=== PATIENT | male | born 1950 | race Caucasian/White ===

== ENCOUNTER 2016-05-28 17:52 | Emergency (ER) | payer OTHER ==
--- NOTE | 2016-05-28 18:55 | DIAGNOSTIC IMAGING REPORT ---
PROCEDURE: CT HEAD WITHOUT CONTRAST INDICATION: TRAUMA/INJURY TECHNIQUE: Noncontrast axial images with sagittal and coronal reformations. COMPARISON: Compared to a head CT on 07/18/2011. FINDINGS: There is a deep laceration over the right posterior frontal region which extends to the frontal bone. No evidence of skull fracture. Mild old small vessel changes of the white matter. Brain and ventricles are otherwise normal. No evidence of an acute process or hemorrhage. There are calcifications of the vertebral vessels. There is marked chronic mucosal thickening of the right maxillary sinus with findings suggesting obstruction of the ostiomeatal unit. There is mild to moderate mucosal thickening in the anterior ethmoid air cells. Sinuses and mastoids are otherwise normal. IMPRESSION: 1. Deep laceration over the frontal bone. 2. Mild old small vessel changes of the white matter. Otherwise normal brain and ventricles. No evidence of intracranial injury. 3. Marked chronic mucosal thickening of the right maxillary sinus with findings suggesting obstruction of the ostiomeatal unit (e.g., polyp, mucosal thickening). 4. Mild to moderate mucosal thickening in the anterior ethmoid air cells (appears chronic). 5. Chronic calcifications of the vertebral arteries. 6. Findings discussed with Dr. Nas Coello at [address] scans at this facility use dose modulation, iterative reconstruction, and/or weight-based dosing when appropriate to reduce radiation dose to as low as reasonably achievable.
--- NOTE | 2016-05-28 21:11 | ED ORDER SUMMARY ---
..... Patient: RAJ LEARY OrderSheet [facility] VisitID: [id number] [place] [address] 66y, M Registration Date/Time: 05/28/2016 ORDER SHEET Weight: 78.4 kg (stated) Allergies: No Known Drug Allergy GENERAL ORDERS: CT Head wo Cont Urgent (18:11 05/28/2016 Geovanna Louise) (Ack 18:13 Yevgeniy) (19:26 JQuivey R.N.) Irrigate Wounds (18:12 05/28/2016 Geovanna Louise) (Ack 18:13 Yevgeniy) (18:36 SReitz R.N.) Suture Set-up: (18:12 05/28/2016 Geovanna Louise) (Ack 18:13 Yevgeniy) (19:26 JQuivey R.N.) MEDICATION ORDERS: Lidocaine-Epinephrine Injection 1% (place at bedside, with syringes & needles) (18:12 05/28/2016 Geovanna Louise) (Ack 18:14 SReitz R.N.) (19:26 JQuivey R.N.) IV FLUIDS: ORDER SHEET NOTES: [Electronically signed by Carol Go R.N. (02:06 05/29/2016)] [Electronically signed by Nas Coello Dr. (10:11 05/29/2016)] [Electronically locked/signed by Carol Go R.N. (02:05/29/2016)]
--- NOTE | 2016-05-28 21:11 | ED CLINICAL REPORT ---
Clinical Report - Physicians/Mid Levels [facility] [address] [place] [address] 05/28/2016 17:53 Patient: RAJ LEARY Time Seen: 1808. Arrived- By private vehicle. Historian- patient. HISTORY OF PRESENT ILLNESS Chief Complaint: INJURY TO HEAD. Location of injuries- face. The injury occurred today. Occurred at home. The patient complains of mild pain. The patient sustained a blow to the head. No neck pain, loss of consciousness or seizure. Not dazed. REVIEW OF SYSTEMS All systems otherwise negative, except as recorded above. PAST HISTORY See nurses notes. Tetanus immunization status is up-to-date. Medications: Vicodin Oral 7.5 mg, PRN. Methotrexate Oral (Tablet 2.5 mg) 3 tabs, once a week. Multiple Vitamins-Minerals Oral 1 tab, daily. Cholecalciferol Oral (Tablet 5000 unit) 1 tablet, daily. Ferrous Sulfate Oral (Tablet 325 (65 Fe) mg) 1 tablet, daily. Folic Acid Oral (Tablet 1 mg) 1 tablet, daily. Humira Pen Subcutaneous (Kit 40 mg/0.8mL), every other week. Lisinopril Oral (Tablet 5 mg) 1 tablet, daily. Meloxicam Oral (Tablet 15 mg) 1 tablet, daily. Carvedilol Phosphate ER Oral. Allergies: No Known Drug Allergy. SOCIAL HISTORY Former smoker. Alcohol use. No drug use. No recent travel. Is a local resident. ADDITIONAL NOTES The nursing notes have been reviewed. PHYSICAL EXAM Vital Signs: 05/28/2016 17:58 BP: 116/74. HR: 52. RR: 18. O2 saturation: 96%. Temp: 97.3 F. Pain level now: 0/10. Blood pressure normal. Oxygen saturation normal. Appearance: Alert. No acute distress. Head: No swelling of head. No Ventura's sign or raccoon eyes. (7 cm elliptical laceration to the right forehead. Full-thickness with subcutaneous tissue and fascia involvement. No foreign bodies. Bleeding is controlled. No gross contamination. No step-offs or crepitus. No other signs of injury noted.). Eyes: Pupils equal, round and reactive to light. Pupillary exam: Right pupil round and reactive to light directly and consensually and with accommodation. Left pupil: round and reactive to light directly and consensually and with accommodation. EOM intact. ENT: No dental injury. No hemotympanum. Pharynx normal. No malocclusion. Neck: No decreased ROM or muscle spasm in the neck. No pain with movement of head/neck. Painless ROM. Neck non-tender. No vertebral tenderness. CVS: Heart sounds normal. Pulses normal. Respiratory: Breath sounds normal. Chest nontender. Abdomen: Soft and nontender. No organomegaly. Back: No tenderness. ROM normal. Skin: Skin intact. Skin warm and dry. Normal skin color. Normal skin turgor. Extremities: Normal inspection. Pelvis stable. Extremities atraumatic. No lower extremity edema. Neuro: [place] Coma Scale: 15- eyes open spontaneously (4); best verbal response- oriented x 3 (5); best motor response- obeys commands (6). Oriented X 3. Mood/affect normal. Speech normal. No motor deficit. No sensory deficit. LABS, X-RAYS, AND EKG CT Head: No bony abnormalities, no hemorrhage, no intracranial mass, no midline shift and no hydrocephalus. (no acute intracranial abnormalities.). Head CT performed without contrast. The study was independently viewed by me and interpreted by the radiologist. The study was discussed with the radiologist (Via phone). PROGRESS AND PROCEDURES Laceration Repair: Location: forehead. Length: 7.0cm. Wound depth/shape- subcutaneous and involving fascia and muscle. Distal neuro/vascular/tendon status normal. Anesthesia provided using 1% lidocaine with epi. Prepped with Hibiclens. Wound explored, cleansed, irrigated and examined to the base in bloodless field extensively with normal saline. Closure of skin: interrupted 5-0 nylon (14 sutures). Post-procedure: he is stable and there are no complications. Bleeding is controlled. Dressing applied. Tetanus immunization up-to-date. Estimated blood loss: 8 mL. ( patient tolerated well). Course of Care: the patient is a pleasant 66-year-old male presenting for evaluation of fall in the bathroom. 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 The patient reports a loss consciousness or injury to the neck, back, chest, abdomen, pelvis, or other extremities. Because of the patient's age of 66, he is a candidate for CT scan of the head for evaluation of any acute intracranial bleeds. Patient is agreeable to treatment plan. Also discussed the patient wound closure and need for irrigation and cleaning of the wound to the forehead. The patient to be deep. Bleeding is been controlled here in the emergency department. Patient's CT scan of his head does not show any acute intracranial abnormalities. The rest of the pat unremarkable. Patient's was agreeable to the closure of the wound. Please see procedure note for further details. The wound was closed. Bleeding is controlled. Infection precaution risks were explained to patient as well as wound care. Follow-up as well as home care, return precautions were also discussed. All questions have been answered. The patient expressed understanding of these instructions and was agreeable to them. While suturing the patient he was talking to me about [employer] for [employer]. Prior to patient's departure from the emergency department he is noted to be resting in bed and in no acute distress. Patient continues to be appropriate. Do not feel patient needs be admitted to the hospital require further emergency department workup/evaluation. Disposition: Discharged. Condition: good. CLINICAL IMPRESSION 05/28/2016 20:51 BP: 109/65. HR: 92. RR: 15. O2 saturation: 100%. Blood pressure normal. Oxygen saturation normal. Single deep laceration to the forehead.No foreign body present. Minor closed head injury. No loss of consciousness. INSTRUCTIONS Warnings: GENERAL WARNINGS: Return or contact your physician immediately if your condition worsens or changes unexpectedly, if not improving as expected, or if other problems arise. Specifically return if pain, vomiting, bleeding, breathing difficulty or fever. Your Current Medications: CONTINUE TAKING THE FOLLOWING MEDICATIONS: Carvedilol Phosphate ER Oral. Cholecalciferol Oral : Tablet 5000 unit, 1 tablet daily. Ferrous Sulfate Oral : Tablet 325 (65 Fe) mg, 1 tablet daily. Folic Acid Oral : Tablet 1 mg, 1 tablet daily. Humira Pen Subcutaneous : Kit 40 mg/0.8mL, every other week. Lisinopril Oral : Tablet 5 mg, 1 tablet daily. Meloxicam Oral : Tablet 15 mg, 1 tablet daily. Methotrexate Oral : Tablet 2.5 mg, 3 tabs once a week. Multiple Vitamins-Minerals Oral : 1 tab daily. Vicodin Oral : 7.5 mg PRN. Prescription Medications: [place] 5 mg / 325 mg tablets: take 1 orally every 6 hours as needed for pain. Dispense fifteen (15). No refill. Substitution is permissible. Follow-up: Return to the emergency department as needed. Follow up with your doctor in three days. Reason for referral: recheck today's concerns. Summary of care provided to patient via paper. Screening today revealed the patient's blood pressure to be in the normal range. The patient should follow up with a primary care provider for blood pressure management. Understanding of the discharge instructions verbalized by patient. (Electronically signed by Nas Coello Dr. 05/29/2016 10:11)
--- NOTE | 2016-05-28 21:11 | ED ORDER SUMMARY ---
..... Patient: RAJ LEARY OrderSheet [facility] VisitID: [id number] [place] [address] 66y, M Registration Date/Time: 05/28/2016 ORDER SHEET Weight: 78.4 kg (stated) Allergies: No Known Drug Allergy GENERAL ORDERS: CT Head wo Cont Urgent (18:11 05/28/2016 Geovanna Louise) (Ack 18:13 Yevgeniy) (19:26 JQuivey R.N.) Irrigate Wounds (18:12 05/28/2016 Geovanna Louise) (Ack 18:13 Yevgeniy) (18:36 SReitz R.N.) Suture Set-up: (18:12 05/28/2016 Geovanna Louise) (Ack 18:13 Yevgeniy) (19:26 JQuivey R.N.) MEDICATION ORDERS: Lidocaine-Epinephrine Injection 1% (place at bedside, with syringes & needles) (18:12 05/28/2016 Geovanna Louise) (Ack 18:14 SReitz R.N.) (19:26 JQuivey R.N.) IV FLUIDS: ORDER SHEET NOTES: [Electronically signed by Carol Go R.N. (02:06 05/29/2016)] [Electronically signed by Nas Coello Dr. (10:11 05/29/2016)] [Electronically locked/signed by Carol Go R.N. (02:05/29/2016)]
--- NOTE | 2016-05-28 21:11 | ED NURSING NOTES ---
Clinical Report - Nurses [place] [address] [place] [address] 05/28/2016 17:53 Patient: RAJ LEARY TRIAGE Triage time 17:59. Acuity: LEVEL 3. Chief Complaint: FALL while standing, onto a tile surface and landed on their head; became dizzy. Alert. No acute distress. HARJINDER COMA SCORE: [place] Coma Scale: 15- eyes open spontaneously (4); best verbal response- oriented x 4 (5); best motor response- obeys commands (6). --18:11 Marilyn Seals R.N. 17:58 05/28/16. BP: 116/74. HR: 52. RR: 18. O2 saturation: 96%. Temp: 97.3 F (oral). Pain level now: 0/10. --18:11 Marilyn Seals R.N. Weight: 78.4 kg stated. Height/Length: 73 inches Per Patient. BMI: 22.8. --18:08 Marilyn Seals R.N. Medications Carvedilol Phosphate ER Oral. --18:03 Marilyn Seals R.N. Cholecalciferol Oral (Tablet 5000 unit) 1 tablet, daily. Ferrous Sulfate Oral (Tablet 325 (65 Fe) mg) 1 tablet, daily. Folic Acid Oral (Tablet 1 mg) 1 tablet, daily. Humira Pen Subcutaneous (Kit 40 mg/0.8mL), every other week. Lisinopril Oral (Tablet 5 mg) 1 tablet, daily. Meloxicam Oral (Tablet 15 mg) 1 tablet, daily. --18:03 Marilyn Seals R.N. Methotrexate Oral (Tablet 2.5 mg) 3 tabs, once a week. Multiple Vitamins-Minerals Oral 1 tab, daily. --18:03 Marilyn Seals R.N. Vicodin Oral 7.5 mg, PRN. --18:04 Marilyn Seals R.N. Medication/allergy information source: the patient. --18:11 Marilyn Seals R.N. Allergies No Known Drug Allergy. --18:03 Marilyn Seals R.N. History Arrived by EMS. Historian: EMS and patient. Accompanied by friend. Primary physician ([facility]). This occurred just prior to arrival. Occurred at home. ( pt was able to crawl to the door of the house and meet EMS, denies LOC). PAST MEDICAL HX: Last tetanus: (about 5 years). SOCIAL HX: Former smoker. Alcohol use; consumes liquor weekly. (had 3 vodka tonic's today). No drug use. LEARNING NEEDS ASSESSMENT: The learning needs assessment revealed no barriers. FALL RISK ASSESSMENT: Fall risk assessment completed. Risk factors identified include patient history of fall and impairment of mobility. FUNCTIONAL ASSESSMENT: Functional assessment performed: requires assistance with the activities of daily living; uses cane- this mobility impairment is an ongoing problem. --18:11 Marilyn Seals R.N. PROBLEMS: Folliculitis. Contusion. Fall. Back Pain. GI Bleeding. Chest Pain. Abnormal Liver Function Test. Substance Abuse. Anemia. Syncope. COPD - Chronic Obstructive Pulmonary Disease. Congestive Heart Failure. Pneumothorax. Concussion. Hypertension. Silas's Disease. Rheumatoid Arthritis. Immunizations. --18:05 Marilyn Seals R.N. ADDITIONAL SURGERIES: Appendectomy. Back Surgery. Knee Prosthesis. Knee Surgery. Metal heydi in L femur. Right foot fusion . Rotator Cuff Surgery. Screw in L hip. Splenectomy. Tonsillectomy & Adenoidectomy. --18:05 Marilyn Seals R.N. Assessment GENERAL / NEURO / PSYCH: Alert. Oriented X 4. Appears in no acute distress. Patient appears calm and cooperative. RESPIRATORY: Respirations not labored. SKIN: Skin is warm and dry. --18:11 Marilyn Seals R.N. Interventions ID band on patient. To treatment room. --18:11 Marilyn Seals R.N. PHYSICAL ASSESSMENT To room via stretcher. GENERAL / NEURO / PSYCH: Alert. Oriented X 4. Appears in no acute distress. RESPIRATORY: Respirations not labored. CVS: Pulses within normal limits. Capillary refill less than 2 seconds. EXTREMITIES: ( first contact with pt.). SKIN: Skin is warm and dry. Skin breakdown noted. (lacerations on forehead: bleeding controlled.). --18:16 Pam Malloy R.N. NURSING PROGRESS NOTES Care transferred and report given (from HANNAH Sanders). --18:15 Pam Malloy R.N. Two patient identifiers checked. Call light placed in reach. Side rails up x 2. Bed placed in lowest position. Brakes of bed on. Patient ready for evaluation- chart flagged. --18:16 Pam Malloy R.N. ( Laceration cart in room and set up.). --18:16 Pam Malloy R.N. Wound cleansed with sterile saline. --18:22 Rasheed Pendleton, Tech1 19:20. Care transferred and report received. --19:21 Javed Fleming R.N. 19:26 05/28/2016 Lidocaine-Epinephrine (Lidocaine-Epinephrine) Injection 1 % given. (at bedside). --19:26 Javed Fleming R.N. 19:27. Cardiac rhythm: sinus rhythm. The patient is sleeping. RESPIRATORY: No respiratory distress. --19:27 Javed Fleming R.N. 19:27 05/28/16. BP: 124/86. HR: 71. RR: 16. O2 saturation: 100%. --19:27 Javed Fleming R.N. 20:13. WOUND REPAIR: Wound repair performed by ED physician. Assisted by one tech. The wound is located on the scalp. The wound is linear. Preparation: suture tray set-up with 1% lidocaine with epi. Wound cleansed per physician and irrigated per physician. Procedure: wound repaired with sutures. Post-procedure: he was stable, no complications and bleeding controlled. Total time of assist / procedure: 15 minutes. ( 1 suture pack used in repair). --20:19 Javed Fleming R.N. 20:51. The patient is calm and resting quietly. RESPIRATORY: No respiratory distress. --20:53 Javed Fleming R.N. 20:51 05/28/16. BP: 109/65. HR: 92. RR: 15. O2 saturation: 100% on room air. --20:53 Javed Fleming R.N. DISPOSITION / DISCHARGE Condition at departure: improved and stable. No learning barriers present. Discharge instructions provided and reviewed with the patient. Reviewed medication(s) side effects, precautions, dosing and course information. Prescription(s) given to the patient. Patient verbalized understanding. Written instructions provided in [place]. The patient was discharged home and accompanied by purchasing analyst. He left the Emergency Department ambulatory and via private vehicle. Mental Health Unit Lead Psychologist driving. ( pt given paper pants and hospital socks to wear home.). --21:21 Carol Go R.N. 21:20 05/28/16. BP: 112/74. HR: 96. RR: 15. O2 saturation: 100% on room air. Temp: deferred. Maldonado-Ji pain scale: 04/05. --21:21 Carol Go R.N. Locked/Released at 05/29/2016 2:06 by Carol Go R.N.
--- NOTE | 2016-05-29 10:11 | ED DISCHARGE INSTRUCTIONS ---
Patient: RAJ LEARY General Instructions [facility] VisitID: [id number] [place] [address] 66y, M Registration Date/Time: 05/28/2016 05/28/2016 20:51 BP: 109/65. HR: 92. RR: 15. O2 saturation: 100%. Blood pressure normal. Oxygen saturation normal. Single deep laceration to the forehead.No foreign body present. Minor closed head injury. No loss of consciousness. INSTRUCTIONS Warnings: GENERAL WARNINGS: Return or contact your physician immediately if your condition worsens or changes unexpectedly, if not improving as expected, or if other problems arise. Specifically return if pain, vomiting, bleeding, breathing difficulty or fever. Your Current Medications: CONTINUE TAKING THE FOLLOWING MEDICATIONS: Carvedilol Phosphate ER Oral. Cholecalciferol Oral : Tablet 5000 unit, 1 tablet daily. Ferrous Sulfate Oral : Tablet 325 (65 Fe) mg, 1 tablet daily. Folic Acid Oral : Tablet 1 mg, 1 tablet daily. Humira Pen Subcutaneous : Kit 40 mg/0.8mL, every other week. Lisinopril Oral : Tablet 5 mg, 1 tablet daily. Meloxicam Oral : Tablet 15 mg, 1 tablet daily. Methotrexate Oral : Tablet 2.5 mg, 3 tabs once a week. Multiple Vitamins-Minerals Oral : 1 tab daily. Vicodin Oral : 7.5 mg PRN. Prescription Medications: [place] 5 mg / 325 mg tablets: take 1 orally every 6 hours as needed for pain. Dispense fifteen (15). No refill. Substitution is permissible. Follow-up: Return to the emergency department as needed. Follow up with your doctor in three days. Reason for referral: recheck today's concerns. Summary of care provided to patient via paper. Screening today revealed the patient's blood pressure to be in the normal range. The patient should follow up with a primary care provider for blood pressure management. Understanding of the discharge instructions verbalized by patient. ADDITIONAL INFORMATION Head Injury, No Wake-Up (Adult) You have had a head injury. It does not appear serious at this time. Symptoms of a more serious problem (concussion, bruising, or bleeding in the brain) may appear later. Therefore, watch for the WARNING SIGNS listed below. Home Care: Your healthcare provider will tell you whether its okay to drive. If so, you can drive yourself home. For the next day or so, be careful when driving or using heavy machinery until you are sure you have no delayed symptoms. During the next 24 hours someone must stay with you to check for the signs below. It is not necessary to stay awake or be awakened during the night. If you have swelling of the face or scalp, apply an ice pack (ice cubes in a plastic bag, wrapped in a towel) for 20 minutes. Do this every 1-2 hours until the swelling starts to go down. Do not use aspirin or ibuprofen (Motrin, Advil) after a head injury.You may use acetaminophen (Tylenol)to control pain, unless another pain medicine was prescribed. [NOTE: If you have chronic liver or kidney disease or ever had a stomach ulcer or GI bleeding, talk with your doctor before using these medicines.] For the next 24 hours: Do not take alcohol, sedatives or medicines that make you sleepy. Avoid strenuous activities. No lifting or straining. If you have had any symptoms of a concussion today (nausea, vomiting, dizziness, confusion, headache, memory loss or if you were knocked out), do not return to sports or any activity that could result in another head injury until all symptoms are gone and you have been cleared by your doctor. A second head injury before fully recovering from the first one can lead to serious brain injury. Follow Up with your doctor if symptoms are not improving after 24 hours, or as directed. [NOTE: A radiologist will review any X-rays or CT scans that were taken. We will notify you of any new findings that may affect your care.] Get Prompt Medical Attention if any of the followingWARNING SIGNS occur: Repeated vomiting Severe or worsening headache or dizziness Unusual drowsiness, or unable to awaken as usual Confusion or change in behavior or speech, memory loss, blurred vision Convulsion (seizure) Increasing scalp or face swelling Redness, warmth or pus from the swollen area Fluid drainage or bleeding from the nose or ears Concussion (No Wake-Up) A concussion happens when you hit your head with enough force to shake up the brain. This may cause you to lose consciousness be "knocked out" - but not always. Depending on how hard you hit your head, it will take from a few hours up to a few days to get better. Sometimes symptoms may last a few months or longer. This is called post-concussion syndrome. At first, you may have a headache, nausea, vomiting, or dizziness. You may also have problems concentrating or remembering things. This is normal. Symptoms should get better as the hours and days go by. Symptoms that get worse could be a sign of a more serious injury. This might be a bruise or bleeding in the brain. Thats why its important to watch for the warning signs listed below. Home care Follow these tips to help care for yourself at home: During the next day (24 hours) someone must stay with you to check for the signs below. If your face or scalp swells, apply an ice pack for 20 minutes every 1 to 2 hours. Do this until the swelling starts to go down. You can make an ice pack by putting ice cubes in a plastic bag and wrapping the bag in a towel. for 20 minutes every 1-2 hours until the swelling starts to go down. You may use acetaminophen to control pain, unless another pain medicine was prescribed. If you have chronic liver or kidney disease, talk with your doctor before using these medicines. Also talk with your doctor if you ever had a stomach ulcer or GI bleeding. For the next 24 hours: Dont drink alcohol or take sedatives or medicines that make you sleepy. Dont drive or operate machinery. Avoid doing anything strenuous. Dont lift or strain. Dont return to sports or any activity that could cause you to hit your head until all symptoms are gone and you have been cleared by your doctor. A second head injury before fully recovering from the first one can lead to serious brain injury. Follow-up care Follow up with your doctor in 1 week, or as directed. Note: A radiologist will review any X-rays or CT scans that were taken. You will be told of any new findings that may affect your care. When to seek medical care Get prompt medical attention if any of these occur: Repeated vomiting Headache or dizziness that is severe or gets worse Unusual drowsiness, or unable to wake up as usual Confusion or change in behavior or speech, or memory loss Blurred vision Convulsion (seizure) Swelling on the scalp or face that gets worse Redness, warmth, or pus from the swollen area Fluid draining from or bleeding from the nose or ears Laceration, Face (Suture Or Tape) Alaceration is a cut through the skin. This will require stitches if it is deep. Minor cuts may be treated with surgical tape. Home care The following guidelines will help you care for your laceration at home: If a bandage was applied and it becomes wet or dirty, replace it. Otherwise, leave it in place for the first 24 hours, then change it once a day or as directed. If sutures were used, clean the wound daily: After removing the bandage, wash the area with soap and water. Use a wet cotton swab to loosen and remove any blood or crust that forms. After cleaning, keep the wound clean and dry. Talk with your doctor before applying any antibiotic ointment to the wound. Reapply a fresh bandage. You may remove the bandage to shower as usual after the first 24 hours, but do not soak the area in water (no swimming) until the sutures are removed. If surgical tape was used, keep the area clean and dry. If it becomes wet, blot it dry with a towel. The doctor may prescribe an antibiotic cream or ointment to prevent infection. Do not stop taking this medication until you have have finished the prescribed course or the doctor tells you to stop. The doctor may also prescribe medications for pain. Follow the doctor's instructions for taking these medications.If you have chronic liver or kidney disease or ever had a stomach ulcer or GI bleeding, talk with your doctor before using these medicines. Follow-up care Follow up with your health care provider. Most facial cuts heal in five days with no problem. However, even with proper treatment, a wound infection sometimes occurs. Therefore, check the wound daily for the warning signs listed below. Stitches should not be left in the face for more thanfivedays; otherwise, permanent stitch ovalle may form. If surgical tape closures were used, you may remove them yourself afterfivedays, if they have not fallen off by then. When to seek medical care Get prompt medical attention if any of these occur: Increasing pain in the wound Redness, swelling, or pus coming from the wound If sutures come apart or fall out before 5 days If the surgical tape closures fall off before 5 days, or the wound edges reopen Fever of 100.4F (38C) or higher, or as directed by your health care provider Bleeding not controlled by direct pressure Hydrocodone Bitartrate, Acetaminophen Oral tablet What is this medicine? ACETAMINOPHEN; HYDROCODONE (a set a IRASEMA juan fen; grayson droe KOE done) is a pain reliever. It is used to treat mild to moderate pain. How should I use this medicine? Take this medicine by mouth. Swallow it with a full glass of water. Follow the directions on the prescription label. If the medicine upsets your stomach, take the medicine with food or milk. Do not take more than you are told to take. Talk to your horse show manager regarding the use of this medicine in children. This medicine is not approved for use in children. What side effects may I notice from receiving this medicine? Side effects that you should report to your doctor or health before and after school daycare worker as soon as possible: allergic reactions like skin rash, itching or hives, swelling of the face, lips, or tongue breathing problems confusion feeling faint or lightheaded, falls stomach pain yellowing of the eyes or skin Side effects that usually do not require medical attention (report to your doctor or health before and after school daycare worker if they continue or are bothersome): nausea, vomiting stomach upset What may interact with this medicine? alcohol antihistamines isoniazid medicines for depression, anxiety, or psychotic disturbances medicines for sleep muscle relaxants naltrexone narcotic medicines (opiates) for pain phenobarbital ritonavir tramadol What if I miss a dose? If you miss a dose, take it as soon as you can. If it is almost time for your next dose, take only that dose. Do not take double or extra doses. Where should I keep my medicine? Keep out of the reach of children. This medicine can be abused. Keep your medicine in a safe place to protect it from theft. Do not share this medicine with anyone. Selling or giving away this medicine is dangerous and against the law. Store at room temperature between 15 and 30 degrees C (59 and 86 degrees F). Protect from light. Keep container tightly closed. Throw away any unused medicine after the expiration date. Discard unused medicine and used packaging carefully. Pets and children can be harmed if they find used or lost packages. What should I tell my health care provider before I take this medicine? They need to know if you have any of these conditions: brain tumor Crohn's disease, inflammatory bowel disease, or ulcerative colitis drink more than 3 alcohol-containing drinks per day drug abuse or addiction head injury heart or circulation problems kidney disease or problems going to the bathroom liver disease lung disease, asthma, or breathing problems an unusual or allergic reaction to acetaminophen, hydrocodone, other opioid analgesics, other medicines, foods, dyes, or preservatives or trying to get breast-feeding What should I watch for while using this medicine? Tell your doctor or health before and after school daycare worker if your pain does not go away, if it gets worse, or if you have new or a different type of pain. You may develop tolerance to the medicine. Tolerance means that you will need a higher dose of the medicine for pain relief. Tolerance is normal and is expected if you take the medicine for a long time. Do not suddenly stop taking your medicine because you may develop a severe reaction. Your body becomes used to the medicine. This does NOT mean you are addicted. Addiction is a behavior related to getting and using a drug for a non-medical reason. If you have pain, you have a medical reason to take pain medicine. Your doctor will tell you how much medicine to take. If your doctor wants you to stop the medicine, the dose will be slowly lowered over time to avoid any side effects. You may get drowsy or dizzy when you first start taking the medicine or change doses. Do not drive, use machinery, or do anything that may be dangerous until you know how the medicine affects you. Stand or sit up slowly. There are different types of narcotic medicines (opiates) for pain. If you take more than one type at the same time, you may have more side effects. Give your health care provider a list of all medicines you use. Your doctor will tell you how much medicine to take. Do not take more medicine than directed. Call emergency for help if you have problems breathing. The medicine will cause constipation. Try to have a bowel movement at least every 2 to 3 days. If you do not have a bowel movement for 3 days, call your doctor or health before and after school daycare worker. Too much acetaminophen can be very dangerous. Do not take Tylenol (acetaminophen) or medicines that contain acetaminophen with this medicine. Many non-prescription medicines contain acetaminophen. Always read the labels carefully. You have been given the following additional information: HEAD INJURY, No Wake-Up (Adult) Concussion, No Wake-Up Laceration, Face (Suture Or Tape) Hydrocodone Bitartrate, Acetaminophen Oral tablet (Electronically signed by Nas Coello Dr. 05/29/2016 10:11)
--- NOTE | 2016-05-29 10:12 | ED MAR SUMMARY ---
..... Medication Administration Record [address] [place] [address] Patient: RAJ LEARY Visit ID: [id number] 66y, M Weight: 78.4 kg Height/Length: 73 in BMI: 22.8 ALLERGIES: No Known Drug Allergy Given 19:26 05/28/2016 Javed Fleming R.N. Medication Administered: LIDOCAINE-EPINEPHRINE [INJECTION] (LIDOCAINE-EPINEPHRINE), Dose: 1 % Injection. Medication Ordered: Lidocaine-Epinephrine Injection 1% (place at bedside, with syringes & needles).
--- NOTE | 2016-05-29 10:12 | ED MED RECONCILIATION SUMMARY ---
Patient: RAJ LEARY Medication Reconciliation Report [facility] VisitID: [id number] [place] [address] 66y, M Registration Date/Time: 05/28/2016 Weight: 78.4 kg Height/Length: 73 in. BMI: 22.8 ALLERGIES: No Known Drug Allergy The patient's Home Medications are listed below: CONTINUE TAKING THE FOLLOWING MEDICATIONS: Carvedilol Phosphate ER Oral Cholecalciferol Oral (5000 unit) 1 tablet, daily Ferrous Sulfate Oral (325 (65 Fe) mg) 1 tablet, daily Folic Acid Oral (1 mg) 1 tablet, daily Humira Pen Subcutaneous (40 mg/0.8mL), every other week Lisinopril Oral (5 mg) 1 tablet, daily Meloxicam Oral (15 mg) 1 tablet, daily Methotrexate Oral (2.5 mg) 3 tabs, once a week Multiple Vitamins-Minerals Oral 1 tab, daily Vicodin Oral 7.5 mg, PRN The source(s) of the original Home Medication information: patient The following Medications were given to the patient in the Emergency Department: Lidocaine-Epinephrine [Injection] Injection 1 %, administered: 05/28/2016 7:26:00 PM The following Medications were prescribed to the patient: [place] 5 mg / 325 mg tablets: take 1 orally every 6 hours as needed for pain. Dispense fifteen (15). No refill. Substitution is permissible. -- Nas Coello Dr.
--- NOTE | 2016-05-29 10:12 | ED MAR SUMMARY ---
..... Medication Administration Record [address] [place] [address] Patient: RAJ LEARY Visit ID: [id number] 66y, M Weight: 78.4 kg Height/Length: 73 in BMI: 22.8 ALLERGIES: No Known Drug Allergy Given 19:26 05/28/2016 Javed Fleming R.N. Medication Administered: LIDOCAINE-EPINEPHRINE [INJECTION] (LIDOCAINE-EPINEPHRINE), Dose: 1 % Injection. Medication Ordered: Lidocaine-Epinephrine Injection 1% (place at bedside, with syringes & needles).
--- NOTE | 2016-05-29 10:12 | ED MED RECONCILIATION SUMMARY ---
Patient: RAJ LEARY Medication Reconciliation Report [facility] VisitID: [id number] [place] [address] 66y, M Registration Date/Time: 05/28/2016 Weight: 78.4 kg Height/Length: 73 in. BMI: 22.8 ALLERGIES: No Known Drug Allergy The patient's Home Medications are listed below: CONTINUE TAKING THE FOLLOWING MEDICATIONS: Carvedilol Phosphate ER Oral Cholecalciferol Oral (5000 unit) 1 tablet, daily Ferrous Sulfate Oral (325 (65 Fe) mg) 1 tablet, daily Folic Acid Oral (1 mg) 1 tablet, daily Humira Pen Subcutaneous (40 mg/0.8mL), every other week Lisinopril Oral (5 mg) 1 tablet, daily Meloxicam Oral (15 mg) 1 tablet, daily Methotrexate Oral (2.5 mg) 3 tabs, once a week Multiple Vitamins-Minerals Oral 1 tab, daily Vicodin Oral 7.5 mg, PRN The source(s) of the original Home Medication information: patient The following Medications were given to the patient in the Emergency Department: Lidocaine-Epinephrine [Injection] Injection 1 %, administered: 05/28/2016 7:26:00 PM The following Medications were prescribed to the patient: [place] 5 mg / 325 mg tablets: take 1 orally every 6 hours as needed for pain. Dispense fifteen (15). No refill. Substitution is permissible. -- Nas Coello Dr.
== END 2016-05-28 21:19 | disposition home or self-care (01) ==
LOC: ED SRH 17:52
DX: S01.81XA Laceration without foreign body of other part of head, initial encounter (principal); X58.XXXA Exposure to other specified factors, initial encounter; Y93.9 Activity, unspecified; Y92.009 Unspecified place in unspecified non-institutional (private) residence as the place of occurrence of the external cause; Y99.9 Unspecified external cause status; Z87.891 Personal history of nicotine dependence; Z79.899 Other long term (current) drug therapy